=== PATIENT | female | born 1995 | race African-American/Black ===

== ENCOUNTER 2017-03-09 16:59 | Emergency (ER) | payer MEDICAID ==
[~2017-03-09] VITALS: Ht 160 cm; Wt 100.0 kg
[2017-03-09 17:02] VITALS: BP 125/82; PULSE 110; RESP 13; TEMP 99; O2SAT 99
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
--- NOTE | 2017-03-09 19:16 | RADRPT ---
EXAM DATE/TIME: 03/09/2017 19:43 [facility] COMPARISON: No previous studies available for comparison. INDICATIONS : Cough, shortness of breath, fever, and lightheaded. MEDICAL HISTORY : None. SURGICAL HISTORY : None. ENCOUNTER: Initial ACUITY: 2 weeks PAIN SCORE: 0/10 LOCATION: Bilateral chest FINDINGS: A single view of the chest demonstrates the lungs to be symmetrically aerated without evidence of mas s, infiltrate or effusion. The cardiomediastinal contours are unremarkable. Osseous structures are intact. CONCLUSION: Normal examination. Jostin Wolff MD on March 09, 2017 at 19:13 Board Certified Radiologist. This report was verified electronically.
[2017-03-09 19:39] LABS: BACTERIA, URINE MOD /hpf; BILIRUBIN, URINE NEG (NEG); BLOOD, URINE TRACE (NEG); GLUCOSE,URINE NEG (NEG); KETONE, URINE NEG (NEG); MUCUS URINE FEW /lpf (OCC); NITRITE,URINE POS (NEG); PH, URINE 5.5 (5.0-8.5); SQUAMOUS EPITHELIAL CELL URINE 2 /hpf (0-5); URINE COLOR YELLOW (YELLW/STRAW); URINE LEUKOCYTE ESTERASE SMALL (NEG)
[2017-03-09] MEDS ORDERED: TRAM50 PO (19:55)
[2017-03-09] MEDS ORDERED: CIPR-9 PO (19:55)
== END 2017-03-09 20:05 | disposition home or self-care (01) ==
LOC: NEPD 16:59
DX: N39.0 Urinary tract infection, site not specified (principal); B96.20 Unspecified Escherichia coli [E. coli] as the cause of diseases classified elsewhere
CPT/HCPCS: 71010; 81001; 84703; 87077; 87086; 87186; 87804; 99284

== ENCOUNTER 2017-03-25 03:14 | Emergency (ER) | payer SELFPAY ==
[~2017-03-25] VITALS: Ht 160 cm; Wt 105.0 kg
[~2017-03-25 03:14] MED LIST: CIPR-9 PO; TRAM50 PO
[2017-03-25 03:15] VITALS: BP 147/73; PULSE 95; RESP 16; TEMP 98.4; O2SAT 98
[2017-03-25] MEDS ORDERED: ORPHENADRINE INJ 60 MG/2 ML AMP IM ONE (04:00)
[2017-03-25] MEDS ORDERED: KETOROLAC TROMETHAMINE 60 MG/2 ML (IM) VIAL IM ONE (04:00)
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
== END 2017-03-25 05:14 | disposition home or self-care (01) ==
LOC: NEPC 03:14
DX: M54.17 Radiculopathy, lumbosacral region (principal); G89.29 Other chronic pain
CPT/HCPCS: 96372; 99284; J1885; J2360

== ENCOUNTER 2017-06-08 21:44 | Emergency (ER) | payer MEDICAID ==
[2017-06-08 21:46] VITALS: BP 112/67; PULSE 86; RESP 16; TEMP 98.5; O2SAT 100
[2017-06-08] MEDS ORDERED: BACL10TA PO (22:19)
[2017-06-08 22:27] VITALS: BP_SYST 111; BP_SYST 117; BP_SYST 129; BP_DIAS 51; BP_DIAS 71; BP_DIAS 76; RESP 18; RESP 24; RESP 28; O2SAT 100
[2017-06-08] MEDS ORDERED: ONDANSETRON HCL 4 MG/2 ML VIAL IV PUSH ONE (22:30)
[2017-06-08] MEDS ORDERED: SODIUM CHLOR 0.9% 1000 ML INJ 1,000 ML IV ONE (22:30)
--- NOTE | 2017-06-08 22:30 | PD ---
HPI Chief Complaint: Syncope/Near-Syncope Time Seen by Provider: 22:11 (Shahbaz Howell) Time Seen by Provider: 22:11 (Srinivas Zamora MD) Travel History International Travel<30 days: No Contact w/Intl Traveler<30days: No Traveled to known affect area: No (Shahbaz Howell) History of Present Illness HPI 22-year-old female that presents to the ED for evaluation of syncope and presyncope. 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 Per patient she's been feeling weak and nauseous since. She had an episode of presyncope before this but she was able to eat and he felt better. Per patient this time she has not gotten better. She came here for evaluation. She denies any chest pain or shortness of breath. She does state having some a history of anxiety. From a history of back pain. She denies any headache but states that she feels very nauseous and dizzy. She has not taken anything for this. She denies any urinary or bowel movement issues. She states that she did have some numbness and tingling sensation to the right side of her face move into her right neck and right arm. Denies having anything like this anymore. She denies any pain. She overall feels very nauseous and has not vomited. No abdominal pain. No fevers chills or sweats. No symptoms preluding the event. Allergies to sulfa and Cipro. (Shahbaz Howell) PFSH Past Medical History Anxiety: Yes (HX OF ANXIETY) Diminished Hearing: No Musculoskeletal: Yes (herniated disk) ?: Not LMP: 05/23/17 (Shahbaz Howell) Past Surgical History Abdominal Surgery: Yes (CSECT) Section: Yes (Shahbaz Howell) Social History Alcohol Use: Yes (occasionally) Tobacco Use: No Substance Use: No (Shahbaz Howell) Allergies-Medications (Allergen,Severity, Reaction): Coded Allergies: Sulfa (Sulfonamide Antibiotics) (Verified Allergy, Severe, Hives, 06/08/17) ciprofloxacin (Verified Allergy, Intermediate, 06/08/17) "makes me itch" Reported Meds & Prescriptions Reported Meds & Active Scripts Active Keflex (Cephalexin) 500 Mg Capsule 500 Mg PO QID 7 Days Reported Baclofen 10 Mg Tab 10 Mg PO BID (Srinivas Zamora MD) Review of Systems Except as stated in HPI: all other systems reviewed are Neg (Shahbaz Howell) Physical Exam Narrative GENERAL: SKIN: Warm and dry. HEAD: Atraumatic. Normocephalic. EYES: Pupils equal and round. No scleral icterus. No injection or drainage. ENT: No nasal bleeding or discharge. Mucous membranes pink and moist. Tongue is midline. No uvula deviation. NECK: Trachea midline. No JVD. CARDIOVASCULAR: Regular rate and rhythm. No murmurs, S3, S4. RESPIRATORY: No accessory muscle use. Clear to auscultation. Breath sounds equal bilaterally. GASTROINTESTINAL: Abdomen soft, non-tender, nondistended. Hepatic and splenic margins not palpable. MUSCULOSKELETAL: Extremities without clubbing, cyanosis, or edema. No obvious deformities. Full range of motion of the upper and lower extremities bilaterally. 2+ pulses bilaterally. NEUROLOGICAL: Awake and alert. No obvious cranial nerve deficits. Motor grossly within normal limits. Five out of 5 muscle strength in the arms and legs. Normal speech. PSYCHIATRIC: Appropriate mood and affect; insight and judgment normal. (Shahbaz Howell) Data Data Last Documented VS Vital Signs Date Time Temp Pulse Resp B/P (MAP) Pulse Ox O2 Delivery O2 Flow Rate FiO2 06/09/17 03:40 06/08/17 22:27 87 18 97 24 87 28 06/08/17 22:27 100 Room Air 06/08/17 21:46 98.5 (Srinivas Zamora MD) Orders Orders Electrocardiogram (06/08/17 22:18) Complete Blood Count With Diff (06/08/17 22:18) Comprehensive Metabolic Panel (06/08/17 22:18) Ckmb (Isoenzyme) Profile (06/08/17 22:18) Troponin I (06/08/17 22:18) Lipase (06/08/17 22:18) Magnesium (Mg) (06/08/17 22:18) Thyroid Stimulating Hormone (06/08/17 22:18) Ct Brain W/O Iv Contrast(Rout) (06/08/17 22:18) Iv Access Insert/Monitor (06/08/17 22:18) Ecg Monitoring (06/08/17 22:18) Oximetry (06/08/17 22:18) Orthostatic Vital Signs (06/08/17 22:18) Ondansetron Inj (Zofran Inj) (06/08/17 22:30) Sodium Chlor 0.9% 1000 Ml Inj (Ns 1000 M (06/08/17 22:30) Ed Urine Pregnancytest Poc (06/08/17 22:30) Urinalysis - C+S If Indicated (06/09/17 01:24) Urine Culture (06/09/17 02:19) Cefazolin 2 Gm Premix (Ancef 2 Gm Premix (06/09/17 03:15) Ed Discharge Order (06/09/17 03:39) (Srinivas Zamora MD) Labs Laboratory Tests Test 06/08/17 22:30 06/09/17 02:19 White Blood Count 8.5 TH/MM3 Red Blood Count 4.80 MIL/MM3 Hemoglobin 12.7 GM/DL Hematocrit 38.0 % Mean Corpuscular Volume 79.2 FL Mean Corpuscular Hemoglobin 26.4 PG Mean Corpuscular Hemoglobin Concent 33.3 % Red Cell Distribution Width 15.1 % Platelet Count 304 TH/MM3 Mean Platelet Volume 8.9 FL Neutrophils (%) (Auto) 55.3 % Lymphocytes (%) (Auto) 34.9 % Monocytes (%) (Auto) 4.4 % Eosinophils (%) (Auto) 4.7 % Basophils (%) (Auto) 0.7 % Neutrophils # (Auto) 4.7 TH/MM3 Lymphocytes # (Auto) 3.0 TH/MM3 Monocytes # (Auto) 0.4 TH/MM3 Eosinophils # (Auto) 0.4 TH/MM3 Basophils # (Auto) 0.1 TH/MM3 CBC Comment DIFF FINAL Differential Comment Blood Urea Nitrogen 16 MG/DL Creatinine 0.73 MG/DL Random Glucose 119 MG/DL Total Protein 7.7 GM/DL Albumin 3.6 GM/DL Calcium Level 9.5 MG/DL Magnesium Level 2.2 MG/DL Alkaline Phosphatase 86 U/L Aspartate Amino Transf (AST/SGOT) 11 U/L Alanine Aminotransferase (ALT/SGPT) 23 U/L Total Bilirubin 0.3 MG/DL Sodium Level 139 MEQ/L Potassium Level 3.6 MEQ/L Chloride Level 106 MEQ/L Carbon Dioxide Level 25.6 MEQ/L Anion Gap 7 MEQ/L Estimat Glomerular Filtration Rate 119 ML/MIN Total Creatine Kinase 69 U/L Troponin I LESS THAN 0.02 NG/ML Lipase 108 U/L Thyroid Stimulating Hormone 3rd Gen 1.180 uIU/ML Urine Color YELLOW Urine Turbidity HAZY Urine pH 6.0 Urine Specific [place] 1.030 Urine Protein 30 mg/dL Urine Glucose (UA) NEG mg/dL Urine Ketones NEG mg/dL Urine Occult Blood NEG Urine Nitrite POS Urine Bilirubin NEG Urine Urobilinogen LESS THAN 2.0 MG/DL Urine Leukocyte Esterase MOD Urine RBC 4 /hpf Urine WBC 8 /hpf Urine Squamous Epithelial Cells 8 /hpf Urine Transitional Epithelial Cells <1 /hpf Urine Bacteria MOD /hpf Urine Mucus MANY /lpf Microscopic Urinalysis Comment CULTURE INDICATED (Srinivas Zamora MD) [facility] Medical Decision Making Medical Screen Exam Complete: Yes Emergency Medical Condition: Yes Medical Record Reviewed: Yes Differential Diagnosis Syncope versus presyncope versus dehydration versus anxiety versus nausea versus generalized weakness Narrative Course 22-year-old female that presents to the ED for evaluation of possible syncope. Patient was properly examined and was found to have signs and symptoms consistent appears to be pre-syncope. Labs and imaging were ordered. Case will be signed out to my attending pending lab results and disposition. (Shahbaz Howell) Diagnosis Primary Impression: UTI (urinary tract infection) Qualified Codes: N30.00 - Acute cystitis without hematuria Additional Impression: Weakness Scripts Cephalexin (Keflex) 500 Mg Capsule 500 MG PO QID for Infection for 7 Days, #28 CAP 0 Refills Prov: Srinivas Zamora MD 06/09/17 Shahbaz Howell Jun 08, 2017 22:30 Srinivas Zamora MD Jun 09, 2017 04:05
[2017-06-08 22:54] LABS: AUTOMATED NEUTROPHIL # 4.7 TH/MM3 (1.8-7.7); BASOPHIL # 0.1 TH/MM3 (0-0.2); BASOPHIL % 0.7 % (0.0-2.0); EOSINOPHIL # 0.4 TH/MM3 (0-0.4); EOSINOPHIL % 4.7 % (0.0-4.0); HEMOGLOBIN 12.7 GM/DL (11.6-15.3); LYMPH % 34.9 % (9.0-44.0); MEAN CELL VOLUME 79.2 FL (80.0-100.0); MEAN CORPUSCULAR HEMOGLOBIN 26.4 PG (27.0-34.0); MEAN CORPUSCULAR HGB CONC 33.3 % (32.0-36.0); MEAN PLATELET VOLUME 8.9 FL (7.0-11.0); MONO % 4.4 % (0.0-8.0); MONOCYTE # 0.4 TH/MM3 (0-0.9); NEUT % 55.3 % (16.0-70.0); PLATELET COUNT 304 TH/MM3 (150-450); RED CELL DISTRIBUTION WIDTH 15.1 % (11.6-17.2); WHITE BLOOD COUNT 8.5 TH/MM3 (4.0-11.0)
[2017-06-08 23:26] LABS: ALBUMIN 3.6 GM/DL (3.4-5.0); AST (GOT) 11 U/L (15-37); BICARBONATE 25.6 MEQ/L (21.0-32.0); BLOOD UREA NITROGEN 16 MG/DL (7-18); CALCIUM 9.5 MG/DL (8.5-10.1); CHLORIDE 106 MEQ/L (98-107); CREATININE 0.73 MG/DL (0.50-1.00); GLOMERULAR FILTRATION RATE 119 ML/MIN (>89); GLUCOSE,RANDOM 119 MG/DL (74-106); LIPASE 108 U/L (73-393); MAGNESIUM 2.2 MG/DL (1.5-2.5); SODIUM (NA) 139 MEQ/L (136-145)
--- NOTE | 2017-06-08 23:27 | RADRPT ---
EXAM DATE/TIME: 06/08/2017 22:59 [facility] COMPARISON: No previous studies available for comparison. INDICATIONS : Syncopal episode. RADIATION DOSE: 56.35 CTDIvol (mGy) MEDICAL HISTORY : None SURGICAL HISTORY : None. ENCOUNTER: Initial ACUITY: 1 day PAIN SCALE: 0/10 LOCATION: cranial TECHNIQUE: Multiple contiguous axial images were obtained of the head. Using automated exposure control and adj ustment of the mA and/or kV according to patient size, radiation dose was kept as low as reasonably a chievable to obtain optimal diagnostic quality images. DICOM format image data is available electro nically for review and comparison. FINDINGS: CEREBRUM: The ventricles are normal for age. No evidence of midline shift, mass lesion, hemorrhage or acute in farction. No extra-axial fluid collections are seen. POSTERIOR FOSSA: The cerebellum and brainstem are intact. The 4th ventricle is midline. The cerebellopontine angle i s unremarkable. EXTRACRANIAL: The visualized portion of the orbits is intact. SKULL: The calvaria is intact. No evidence of skull fracture. CONCLUSION: No acute disease. Suresh Medley MD on June 08, 2017 at 23:24 Board Certified Radiologist. This report was verified electronically.
[2017-06-08 23:37] LABS: ALKALINE PHOSPHATASE 86 U/L (45-117); ALT (GPT) 23 U/L (10-53); TOTAL BILIRUBIN ADULT 0.3 MG/DL (0.2-1.0); TOTAL PROTEIN 7.7 GM/DL (6.4-8.2); TROPONIN I LESS THAN 0.02 NG/ML (0.02-0.05)
[2017-06-09 02:49] LABS: BACTERIA, URINE MOD /hpf; BILIRUBIN, URINE NEG (NEG); BLOOD, URINE NEG (NEG); GLUCOSE,URINE NEG (NEG); KETONE, URINE NEG (NEG); MUCUS URINE MANY /lpf (OCC); NITRITE,URINE POS (NEG); SQUAMOUS EPITHELIAL CELL URINE 8 /hpf (0-5); TRANSITIONAL EPI CELLS, URINE <1 /hpf; URINE COLOR YELLOW (YELLW/STRAW); URINE LEUKOCYTE ESTERASE MOD (NEG)
[2017-06-09] MEDS ORDERED: ceFAZolin 2 GM PREMIX 50 ML IV ONE (03:15)
[2017-06-09] MEDS ORDERED: CEPH-460 PO (03:16)
--- NOTE | 2017-06-09 13:44 | EKG ---
Date Performed: 06/08/2017 Time Performed: 22:18:22 PTAGE: 22 years EKG: Sinus rhythm WITH SINUS ARRHYTHMIA MINIMAL VOLTAGE CRITERIA FOR LVH, CONSIDER NORMAL VARIANT NONSPECIFIC T-WAVE A BNORMALITY BORDERLINE ECG NO PREVIOUS TRACING DOCTOR: Jax Howard Interpretating Date/Time 06/09/2017 13:42:38
== END 2017-06-09 04:14 | disposition home or self-care (01) ==
LOC: NEPE 21:44
DX: N39.0 Urinary tract infection, site not specified (principal); R53.1 Weakness; B96.20 Unspecified Escherichia coli [E. coli] as the cause of diseases classified elsewhere; F41.9 Anxiety disorder, unspecified; R11.0 Nausea; R20.0 Anesthesia of skin; I49.8 Other specified cardiac arrhythmias; R94.31 Abnormal electrocardiogram [ECG] [EKG]
CPT/HCPCS: 70450; 80053; 81001; 82550; 83690; 83735; 84443; 84484; 84703; 85025; 87077; 87086; 87186; 93005; 96361; 96365; 96375; 99285; J0690; J2405; J7030